=== PATIENT | male | born 1965 | race Caucasian/White ===

== ENCOUNTER 2023-08-29 17:49 | Inpatient (IN) | payer BC, OTHER ==
[~2023-08-29] VITALS: Ht 182.9 cm; Wt 94.8 kg
[2023-08-29] MEDS: KETOROLAC TROMETH 60MG/2ML VIAL IM ONE (19:44)
[2023-08-29 19:45] LABS: Basophils # (auto) 0 10 ^3/uL (0-0.2); Basophils % (auto) 0.2 % (0.0-2.0); Eosinophils # (auto) 0 10 ^3/uL (0-0.8); Hematocrit 41.9 % (41.0-53.0); Hemoglobin 13.9 g/dL (13.5-17.5); Lymphocytes # (auto) 0.6 10 ^3/uL (0.4-5.4); Lymphocytes % (auto) 5.6 % (10.0-50.0); Mean Corpuscular Hemoglobin 28.7 pg (28.0-32.0); Mean Corpuscular Hgb Conc. 33.2 g/dL (32.0-36.0); Mean Corpuscular Volume 86.5 fL (80.0-100.0); Monocytes # (auto) 0.2 10 ^3/uL (0-1.3); Monocytes % (auto) 1.7 % (0.0-12.0); Neutrophils # (auto) 10.1 10 ^3/uL (1.6-8.6); Neutrophils % (auto) 92.5 % (37.0-80.0); Nucleated Red Blood Cells % 0.1 %; Red Blood Cells 4.84 10^6/uL (4.5-5.90); Red Cell Distribution Width 14.6 % (11.8-14.3); White Blood Cell 10.9 10^3/uL (4.4-10.8)
[2023-08-29 20:04] LABS: Alanine Aminotransferase 12 U/L (7-40); Albumin 4.8 g/dL (3.2-4.8); Alkaline Phosphatase 83 U/L (46-116); Anion Gap 6 (5-15); Aspartate Aminotransferase < 8 U/L (13-40); BUN/Creatinine Ratio 10.5 (10.0-20.0); Bilirubin, Total 0.9 mg/dL (0.2-1.0); Blood Urea Nitrogen 9 mg/dL (9-23); Calcium 9.2 mg/dL (8.7-10.4); Carbon Dioxide 26 mmol/L (20-30); Chloride 104 mmol/L (98-107); Glucose 137 mg/dL (74-106); Lipase 28 U/L (12-53); Potassium 3.8 mmol/L (3.5-5.1); Sodium 136 mmol/L (136-145); Total Protein 7.9 g/dL (5.7-8.2)
[2023-08-29 20:14] LABS: Urine Blood Negative /uL (Negative); Urine Clarity Clear (Clear); Urine Color Yellow (Yellow); Urine Protein, UAD 1+ (Negative); Urine Specific Gravity 1.027 (1.001-1.035); Urine Urobilinogen Normal (Negative)
[2023-08-29] MEDS ORDERED: DOCUSATE SOD 100 MG CAP PO PRN (22:00)
[2023-08-29] MEDS ORDERED: ONDANSETRON HCL 4 MG/2 ML VIAL IV PRN (22:00)
[2023-08-29] MEDS ORDERED: NITROGLYCERIN 0.4 MG SL TAB SL PRN (22:15)
[2023-08-29] MEDS ORDERED: MORPHINE SULFATE INJ 2 MG/ml SYRG IV PRN (22:15)
[2023-08-29] MEDS: SODIUM CHLORIDE 0.9% 1,000 ML IV ONE (22:45)
[2023-08-30] MEDS: MORPHINE SULFATE INJ 2 MG/ml SYRG IV PRN ×2 (00:09→21:30)
[2023-08-30] MEDS: metroNIDAZOLE 500MG/100ML 100 ML IV SCH (00:23)
[2023-08-30 01:19] VITALS: BP 108/67; PULSE 102; RESP 20; TEMP 98.7; O2SAT 95
[2023-08-30] MEDS ORDERED: ASPI325T4 PO (04:35)
[2023-08-30] MEDS ORDERED: ACET-1881 PO (04:35)
[2023-08-30] MEDS: HYDROcodone-ACET 5/325MG TAB PO PRN (05:37)
[2023-08-30 06:26] LABS: Basophils # (auto) 0 10 ^3/uL (0-0.2); Basophils % (auto) 0.2 % (0.0-2.0); Eosinophils # (auto) 0 10 ^3/uL (0-0.8); Eosinophils % (auto) 0.1 % (0.0-7.0); Hematocrit 34.7 % (41.0-53.0); Hemoglobin 11.6 g/dL (13.5-17.5); Lymphocytes # (auto) 0.8 10 ^3/uL (0.4-5.4); Lymphocytes % (auto) 9.1 % (10.0-50.0); Mean Corpuscular Hgb Conc. 33.6 g/dL (32.0-36.0); Mean Corpuscular Volume 86.3 fL (80.0-100.0); Monocytes # (auto) 0.5 10 ^3/uL (0-1.3); Monocytes % (auto) 5.8 % (0.0-12.0); Neutrophils # (auto) 7.9 10 ^3/uL (1.6-8.6); Neutrophils % (auto) 84.8 % (37.0-80.0); Red Blood Cells 4.02 10^6/uL (4.5-5.90); Red Cell Distribution Width 14.5 % (11.8-14.3); White Blood Cell 9.3 10^3/uL (4.4-10.8)
[2023-08-30 06:35] LABS: Alkaline Phosphatase 66 U/L (46-116); Anion Gap 7 (5-15); Aspartate Aminotransferase < 8 U/L (13-40); BUN/Creatinine Ratio 13.6 (10.0-20.0); Blood Urea Nitrogen 14 mg/dL (9-23); Calcium 8.4 mg/dL (8.7-10.4); Carbon Dioxide 25 mmol/L (20-30); Chloride 106 mmol/L (98-107); Glucose 123 mg/dL (74-106); Potassium 4.1 mmol/L (3.5-5.1); Sodium 138 mmol/L (136-145); Total Protein 6.5 g/dL (5.7-8.2)
[2023-08-30 06:37] LABS: Alanine Aminotransferase 9 U/L (7-40)
[2023-08-30] MEDS: metroNIDAZOLE 500MG/100ML 100 ML IV ONE (08:52)
[2023-08-30] MEDS: ONDANSETRON HCL 4 MG/2 ML VIAL IV ONE (08:53)
[2023-08-30] MEDS: SODIUM CHLORIDE 0.9% 1,000 ML IV SCH (08:53)
[2023-08-30] MEDS: levoFLOXacin 500MG 100 ML IV ONE (08:53)
[2023-08-30] MEDS: MORPHINE SULFATE 4 MG/ML SYR/VIAL IV ONE (08:53)
[2023-08-30 09:00] VITALS: BP 133/79; PULSE 93; RESP 16; TEMP 98.7; O2SAT 94
[2023-08-30] MEDS: levoFLOXacin 500MG 100 ML IV SCH (09:09)
[2023-08-30 13:00] VITALS: BP 132/69; PULSE 103; RESP 18; TEMP 98.6; O2SAT 92
[2023-08-30] MEDS: SUCCINYLCHOLINE CHLORIDE 20 MG/ML 10ML VIAL IV ONE (13:37)
[2023-08-30] MEDS ORDERED: MIDAZOLAM HCL 2MG/2ML 2ml VIAL (1mg/ml) ONE (13:38)
[2023-08-30] MEDS ORDERED: fentaNYL CITRATE 100 MCG/2 ML VL ONE ×2 (13:38→14:56)
[2023-08-30] MEDS ORDERED: PROPOFOL 10 MG/ML 20 ML IV ONE (13:43)
[2023-08-30] MEDS ORDERED: DexAMETHasone SOD PHOS 10MG/1ML VIAL INJ ONE (14:11)
[2023-08-30] MEDS: ACETAMINOPHEN IV 100 ML IV ONE (14:55)
[2023-08-30] MEDS ORDERED: ONDANSETRON HCL 4 MG/2 ML VIAL ONE (15:02)
[2023-08-30] MEDS ORDERED: NEOSTIGMINE 1 MG/ML INJ (10mg/10ML VIAL) ONE (15:27)
[2023-08-30] MEDS ORDERED: GLYCOPYRROLATE 0.2 MG/ML 1ML VIAL ONE (15:28)
[2023-08-30] MEDS ORDERED: ONDANSETRON HCL 4 MG/2 ML VIAL IV PRN (15:30)
[2023-08-30] MEDS ORDERED: HYDROmorphone HCL 2 MG/ML VL/or syr IV PRN ×2 (15:30)
[2023-08-30 16:59] VITALS: BP 134/74; PULSE 93; RESP 16; TEMP 98.8; O2SAT 93
[2023-08-30 22:00] VITALS: BP 120/87; PULSE 95; RESP 14; TEMP 98.3; O2SAT 92
[2023-08-30 22:56] VITALS: O2SAT 95
[2023-08-31 05:00] VITALS: BP 119/75; PULSE 87; RESP 17; TEMP 98.1; O2SAT 94
[2023-08-31 08:50] VITALS: BP 131/80; PULSE 92; RESP 20; TEMP 98.2; O2SAT 90
[2023-08-31] MEDS: ACETAMINOPHEN 325 MG TAB PO PRN (09:42)
[2023-08-31 13:27] VITALS: BP 140/89; PULSE 102; RESP 20; TEMP 98; O2SAT 90
[2023-08-31] MEDS ORDERED: HYDROmorphone HCL 2 MG/ML VL/or syr IV PRN (13:30)
[2023-08-31] MEDS: HYDROcodone-ACET 5/325MG TAB PO PRN (14:20)
[2023-08-31 17:03] VITALS: BP 124/82; PULSE 95; RESP 20; TEMP 98.1; O2SAT 93
[2023-08-31 20:00] VITALS: BP 135/90; PULSE 94; RESP 18; TEMP 97.8; O2SAT 95
[2023-08-31 22:00] VITALS: BP 135/90; PULSE 94; RESP 18; TEMP 97.8; O2SAT 95
[2023-09-01] VITALS (7 sets, daily range): BP systolic 118–157; BP diastolic 76–93; PULSE 88–104; RESP 15–20; TEMP 97.6–98.9; O2SAT 90–98
[2023-09-01 05:27] LABS: Basophils # (auto) 0 10 ^3/uL (0-0.2); Basophils % (auto) 0.3 % (0.0-2.0); Eosinophils # (auto) 0.1 10 ^3/uL (0-0.8); Eosinophils % (auto) 0.6 % (0.0-7.0); Hematocrit 34.4 % (41.0-53.0); Hemoglobin 11.6 g/dL (13.5-17.5); Lymphocytes % (auto) 9.9 % (10.0-50.0); Mean Corpuscular Hgb Conc. 33.7 g/dL (32.0-36.0); Mean Corpuscular Volume 85.9 fL (80.0-100.0); Monocytes # (auto) 0.4 10 ^3/uL (0-1.3); Neutrophils # (auto) 8.8 10 ^3/uL (1.6-8.6); Neutrophils % (auto) 85.2 % (37.0-80.0); Nucleated Red Blood Cells % 0.1 %; Red Cell Distribution Width 14.2 % (11.8-14.3); White Blood Cell 10.3 10^3/uL (4.4-10.8)
[2023-09-01 05:45] LABS: Alkaline Phosphatase 76 U/L (46-116); Anion Gap 7 (5-15); BUN/Creatinine Ratio 18.8 (10.0-20.0); Blood Urea Nitrogen 16 mg/dL (9-23); Calcium 9.3 mg/dL (8.7-10.4); Carbon Dioxide 25 mmol/L (20-30); Chloride 107 mmol/L (98-107); Glucose 93 mg/dL (74-106); Potassium 3.7 mmol/L (3.5-5.1); Sodium 139 mmol/L (136-145)
[2023-09-01 05:46] LABS: Albumin 4.1 g/dL (3.2-4.8); Aspartate Aminotransferase < 8 U/L (13-40); Bilirubin, Total 0.5 mg/dL (0.2-1.0)
[2023-09-01 05:59] LABS: Alanine Aminotransferase < 9 U/L (7-40)
[2023-09-01 08:34] LABS: Hepatitis B Surface Antigen Negative (Negative)
[2023-09-01 08:55] LABS: Hepatitis C Antibody Negative (Negative)
[2023-09-02] VITALS (7 sets, daily range): BP systolic 126–141; BP diastolic 77–92; PULSE 84–99; RESP 17–19; TEMP 97.9–98.6; O2SAT 92–98
[2023-09-02 06:36] LABS: Basophils # (auto) 0 10 ^3/uL (0-0.2); Basophils % (auto) 0.4 % (0.0-2.0); Eosinophils # (auto) 0.1 10 ^3/uL (0-0.8); Eosinophils % (auto) 1.7 % (0.0-7.0); Hematocrit 34.3 % (41.0-53.0); Hemoglobin 11.2 g/dL (13.5-17.5); Lymphocytes # (auto) 0.9 10 ^3/uL (0.4-5.4); Mean Corpuscular Hemoglobin 28.3 pg (28.0-32.0); Mean Corpuscular Hgb Conc. 32.7 g/dL (32.0-36.0); Mean Corpuscular Volume 86.4 fL (80.0-100.0); Monocytes # (auto) 0.8 10 ^3/uL (0-1.3); Monocytes % (auto) 9.8 % (0.0-12.0); Neutrophils # (auto) 6.5 10 ^3/uL (1.6-8.6); Neutrophils % (auto) 77.1 % (37.0-80.0); Red Blood Cells 3.97 10^6/uL (4.5-5.90); Red Cell Distribution Width 14.3 % (11.8-14.3); White Blood Cell 8.4 10^3/uL (4.4-10.8)
[2023-09-02 06:46] LABS: Anion Gap 8 (5-15); Carbon Dioxide 24 mmol/L (20-30); Chloride 105 mmol/L (98-107); Potassium 3.4 mmol/L (3.5-5.1); Sodium 137 mmol/L (136-145)
[2023-09-02 06:47] LABS: Calcium 9.1 mg/dL (8.7-10.4)
[2023-09-02 06:52] LABS: BUN/Creatinine Ratio 14.9 (10.0-20.0); Blood Urea Nitrogen 11 mg/dL (9-23); Glucose 85 mg/dL (74-106); Magnesium 1.8 mg/dL (1.6-2.6)
[2023-09-02] MEDS: POTASSIUM EFFERVESENT TAB 25 MEQ PO ONE (12:17)
[2023-09-02] MEDS: MAGNESIUM OXIDE 400 MG TAB PO SCH (21:28)
[2023-09-03 05:25] VITALS: BP 141/87; PULSE 90; RESP 19; TEMP 98.3; O2SAT 92
[2023-09-03 06:30] LABS: Anion Gap 9 (5-15); Carbon Dioxide 26 mmol/L (20-30); Chloride 105 mmol/L (98-107); Potassium 3.8 mmol/L (3.5-5.1); Sodium 140 mmol/L (136-145)
[2023-09-03 06:32] LABS: Calcium 8.9 mg/dL (8.7-10.4)
[2023-09-03 06:36] LABS: Glucose 97 mg/dL (74-106)
[2023-09-03 06:37] LABS: BUN/Creatinine Ratio 10.8 (10.0-20.0); Blood Urea Nitrogen 8 mg/dL (9-23); Magnesium 1.9 mg/dL (1.6-2.6)
[2023-09-03 08:00] VITALS: PULSE 90; RESP 18
[2023-09-03 09:00] VITALS: BP 129/78; PULSE 72; RESP 18; TEMP 98.3; O2SAT 93
[2023-09-03] MEDS ORDERED: CIPR-173 PO (11:24)
[2023-09-03] MEDS ORDERED: METR-344 PO (11:24)
[2023-09-03 13:00] VITALS: BP 126/84; PULSE 97; RESP 18; TEMP 98.7; O2SAT 95
== END 2023-09-03 17:04 | disposition home or self-care (01) | DRG 397 ==
LOC: ER 17:49 → OVERFLOW 22:03 → WEST WING 23:03
PROVIDERS: ADMIT Nurse Practitioner Family; ATTEND Internal Medicine Geriatric Medicine
PROC: 0W9G40Z Drainage of Peritoneal Cavity with Drainage Device, Percutaneous Endoscopic Approach (ICD-10-PCS; 2023-08-30)
PROC: 0FT44ZZ Resection of Gallbladder, Percutaneous Endoscopic Approach (ICD-10-PCS; 2023-08-30)
PROC: 0DTJ4ZZ Resection of Appendix, Percutaneous Endoscopic Approach (ICD-10-PCS; principal; 2023-08-30 13:49)
DX: K35.33 Acute appendicitis with perforation, localized peritonitis, and gangrene, with abscess (principal); J86.9 Pyothorax without fistula; K81.0 Acute cholecystitis; D64.9 Anemia, unspecified; K66.0 Peritoneal adhesions (postprocedural) (postinfection); Z96.651 Presence of right artificial knee joint; E87.6 Hypokalemia; Z87.442 Personal history of urinary calculi; Z88.0 Allergy status to penicillin
CPT/HCPCS: 36415; 74176; 80048; 80053; 81003; 83690; 83735; 85025; 86803; 87340; 93005; G0378; J0131; J0330; J1100; J1885; J1956; J2250; J2405; J2704; J3490

== ENCOUNTER 2024-12-10 09:50 | Day surgery (SDC) | payer OTHER, BC ==
[2024-12-08 14:39] LABS: Basophils # (auto) 0.1 10 ^3/uL (0-0.2); Basophils % (auto) 0.9 % (0.0-2.0); Eosinophils # (auto) 0.2 10 ^3/uL (0-0.8); Eosinophils % (auto) 2.5 % (0.0-7.0); Lymphocytes # (auto) 2.5 10 ^3/uL (0.4-5.4); Lymphocytes % (auto) 32.6 % (10.0-50.0); Mean Corpuscular Hgb Conc. 34.1 g/dL (32.0-36.0); Mean Corpuscular Volume 85.1 fL (80.0-100.0); Monocytes # (auto) 0.6 10 ^3/uL (0-1.3); Monocytes % (auto) 7.2 % (0.0-12.0); Neutrophils # (auto) 4.4 10 ^3/uL (1.6-8.6); Neutrophils % (auto) 56.8 % (37.0-80.0); Nucleated Red Blood Cells % 0.1 %; Platelet Count (auto) 239 10^3/uL (140-450); Red Blood Cells 4.82 10^6/uL (4.5-5.90); Red Cell Distribution Width 13.7 % (11.8-14.3); White Blood Cell 7.8 10^3/uL (4.4-10.8)
[2024-12-08 15:00] LABS: INR 1.03 (0.9-1.15); Partial Thromboplastin Time 27.6 SEC (24.5-34.5); Prothrombin Time 10.9 sec (9.3-11.8)
[2024-12-08 15:06] LABS: Alanine Aminotransferase 19 U/L (7-40); Albumin 4.4 g/dL (3.2-4.8); Alkaline Phosphatase 70 U/L (46-116); Anion Gap 8 (5-15); Aspartate Aminotransferase 19 U/L (<34); BUN/Creatinine Ratio 15.4 (10.0-20.0); Bilirubin, Total 0.3 mg/dL (0.2-1.0); Blood Urea Nitrogen 16 mg/dL (9-23); Calcium 8.9 mg/dL (8.7-10.4); Carbon Dioxide 29 mmol/L (20-31); Chloride 106 mmol/L (98-107); Glucose 82 mg/dL (74-106); Potassium 4.2 mmol/L (3.5-5.1); Sodium 143 mmol/L (136-145); Total Protein 6.8 g/dL (5.7-8.2)
[~2024-12-10] VITALS: Ht 182.9 cm; Wt 94.3 kg
[~2024-12-10 09:50] MED LIST: MELO15TA29 PO
[2024-12-10 12:20] VITALS: PULSE 78; RESP 11; O2SAT 94
[2024-12-10] MEDS ORDERED: SODIUM CHLORIDE LOCK 10 ML ONE (12:23)
[2024-12-10] MEDS: diphenhdrAMINE HCL 50 MG/1 ML VL ONE (12:31)
[2024-12-10] MEDS: MIDAZOLAM HCL 5 MG/ML-1ML VIAL ONE (12:31)
[2024-12-10] MEDS: fentaNYL CITRATE 100 MCG/2 ML VL ONE (12:31)
--- NOTE | 2024-12-10 12:55 | DVHOP2 ---
Operative Report DATE OF OPERATION: 12/10/24 PROCEDURE: Colonoscopy with cold biopsy. PREOPERATIVE INDICATION: The patient is a 59 -year-old male undergoing colonoscopy for colon cancer screening POSTOPERATIVE DIAGNOSES: 1. Mild sigmoid diverticular disease with sigmoid muscular hypertrophy 2. There was a 1-2 mm benign-appearing rectal polyp that was seen and removed by cold biopsy forceps 3. Trace internal hemorrhoids otherwise completely normal colonoscopy examination up to the cecum and terminal ileum PROCEDURE PERFORMED BY: Samuel Rebolledo M.D. SCOPE: Olympus videocolonoscope. ASA CLASS: 2. PREOPERATIVE MEDICATIONS: Versed 5 mg, Fentanyl 100 mcg, Benadryl 50 mg PROCEDURE IN DETAIL: After obtaining an informed consent, the patient was placed on left lateral decubitus position. He was then sedated with the above medications. A rectal examination was performed that was normal. The colonoscope was then passed through the anus into the rectosigmoid and through the descending, transverse, and ascending colon up to the cecum with visualization of the appendiceal orifice, base of the cecum and the ileocecal valve. The colonoscope was then withdrawn. Distal 5 cm of the terminal ileum were normal No masses or colitis were seen. Patient had mild to moderate sigmoid diverticular disease There was sigmoid muscular hypertrophy. In the rectum there was a 1-2 mm benign-appearing polyp This was removed by cold biopsy forceps. On retroflexion the patient had trace internal hemorrhoids The patient tolerated the procedure well without difficulty. WITHDRAWAL TIME: 8 minutes QUALITY OF THE PREP: Milton Bowel Prep score: 9. COMPLICATIONS : None SPECIMENS: Rectal polyp DISPOSITION: Stable D/C to home PLAN: 1. Repeat colonoscopy base on biopsy result likely in 5-7 years 2. Resume GI soft diet advance as tolerated 3. Increase fluid and fiber intake 4. Outpatient follow up with me in 4-6 weeks to review results and discuss further management SAMUEL REBOLLEDO MD Dec 10, 2024 12:55
[2024-12-10 13:30] VITALS: BP 123/72; PULSE 78; RESP 17; O2SAT 99
== END 2024-12-10 13:30 | disposition home or self-care (01) ==
LOC: GI 09:50
PROVIDERS: ATTEND Internal Medicine Gastroenterology
DX: Z12.11 Encounter for screening for malignant neoplasm of colon (principal); K57.30 Diverticulosis of large intestine without perforation or abscess without bleeding; K64.8 Other hemorrhoids; K62.1 Rectal polyp; K63.89 Other specified diseases of intestine; Z88.0 Allergy status to penicillin; Z98.890 Other specified postprocedural states; F17.200 Nicotine dependence, unspecified, uncomplicated
CPT/HCPCS: 36415; 45380; 80053; 85025; 85610; 85730; 88305; J1200; J2250; J3010; J7030

== ENCOUNTER 2025-02-23 13:08 | Emergency (ER) | payer OTHER, BC ==
[~2025-02-23] VITALS: Ht 182.9 cm; Wt 98.5 kg
[2025-02-23 13:13] VITALS: BP 146/86; PULSE 79; RESP 20; TEMP 97.9; O2SAT 96
[2025-02-23] MEDS: FLUORESCEIN SOD OPTH TEST STRIP LEFTEYE ONE (15:30)
[2025-02-23] MEDS ORDERED: IBUP-1455 PO (15:43)
[2025-02-23] MEDS ORDERED: GENT0.3S10 LEFTEYE (15:43)
[2025-02-23] MEDS ORDERED: HYDR-4902 PO (15:43)
--- NOTE | 2025-02-23 15:44 | ED.PDOC ---
Eye-HPI HPI Comments 59-year-old male with no significant past medical history brought in by family complaining of a possible metal shard in his left eye. Patient states he was using a hand-held drill when he felt a piece of metal fall behind his safety glasses into his left eye. He now reports severe pain in the eye, redness, tearing. He denies decreased vision. Chief Complaint: Eye Problem Time Seen by MD: 14:32 Primary Care Provider: AVEL Murphy Notes: Medications, Allergies Allergies: Coded Allergies: Penicillins (Verified Allergy, Unknown, 08/29/23) Home Meds Active Scripts Hydrocodone-Acetaminophen (Hydrocodone Bitartrate/AC 5-325 mg) 1 Tab Tab, 1 TAB PO Q6HP PRN, #10 TAB Prov:RAMIRO WILL MD 02/23/25 Ibuprofen Micronized (Ibuprofen) 800 Mg Tab, 800 MG PO Q8HP PRN, #30 TAB prn pain, take with food Prov:RAMIRO WILL MD 02/23/25 Gentamicin Sulfate (Gentamicin Sulfate) 0.3 % Thuy, 2 DROP LEFTEYE QID, #5 ML Prov:RAMIRO WILL MD 02/23/25 Reported Medications Meloxicam (Meloxicam) 15 Mg Tab, 15 MG PO DAILY, TAB 12/08/24 Information Source: Patient, Spouse Mode of Arrival: Ambulatory Past Medical History PAST MEDICAL HISTORY: Denies Surgical History (Other): Noncontributory Family History Family History: Reviewed,noncontributory to illness Social History Smoker: Non-Smoker Alcohol: Denies ETOH Use Drugs: Denies Drug Use Lives In: Home All Other Systems: Reviewed and Negative (Comprehensive systems review obtained and negative except for what is stated in the HPI.) Physical Exam General Appearance: Mild Distress HEENT: PERRL/EOMI, Other (Left conjunctival injection. Fluorescein exam: No visualized foreign body, David sign, or areas of increased fluorescein uptake.) Neck: Full Range of Motion, Normal Inspection Respiratory: No Accessory Muscle Use, No Respiratory Distress Cardiovascular: Regular Rate/Rhythm Breast Exam: Deferred Gastrointestinal: Non Tender, Soft Genitalia: Deferred Pelvic: Deferred Rectal: Deferred Extremities: Normal inspection, Normal range of motion, Non-tender, No pedal edema Neurologic: Alert (Oriented x4), Normal Affect, Normal Mood, Other (Ambulatory) Cerebellar Function: NOT DONE Reflexes: NOT DONE Skin: Dry, Normal Color, Warm Lymphatic: NOT DONE Was a procedure done? Was a procedure done?: No EENT DIFF Eye: Conjunctivitis, Allergic, Bacterial, Viral, Corneal Abrasion, Corneal Lacerations, Corneal Ulceration, Foreign Body-Conjunctiva, Foreign Body-Corneal, Foreign Body-Intraocular, Foreign Body-Lid X-Ray, Labs, Meds, VS Vital Signs Date Time Temp Pulse Resp B/P (MAP) Pulse Ox O2 Delivery O2 Flow Rate FiO2 02/23/25 13:13 97.9 79 20 146/86 96 97.9 Current Medications Medications (Trade) Dose Ordered Sig/Adrian Route Start Time Stop Time Status Last Admin Acetaminophen/ Hydrocodone Bitart ([place] 5/325MG Tab) 1 tab ONCE ONCE PO 02/23/25 15:15 02/23/25 15:16 DC 02/23/25 16:02 Diphtheria/ Tetanus/Acell Pertussis (Boostrix T-Dap) 0.5 ml ONCE ONCE IM 02/23/25 15:15 02/23/25 15:16 DC 02/23/25 16:02 X-Ray, Labs, Meds, VS Comment 59-year-old male with no significant past medical history complaining of a left eye foreign body sensation occurring after using a hand drill, then experiencing the sensation of a foreign body landing inside his left eye Vitals remarkable for BP 146/86 Exam remarkable for left eye conjunctival injection and tearing Rhythm strip independently interpreted by me: Sinus rhythm, rate 79, no ectopy. Patient treated with the following in the ED: [place] 5/325 mg p.o., tetracaine 2 drops left eye On fluorescein Wood's lamp exam, there was no visualized foreign body, visualized abrasion, David sign or any area of fluorescein uptake. On re-evaluation, patient stated pain had improved. Vitals were stable. He denied any visual acuity change. Patient appears stable for discharge with close outpatient follow-up with an special library librarian. He was referred to [facility]. Rx gentamicin ophthalmic, ibuprofen Time of 1ST Reevaluation: 15:39 Reevaluation 1ST: Improved Patient Education/Counseling: Diagnosis, Treatment, Need For Follow Up Family Education/Counseling: Diagnosis, Treatment, Need For Follow Up SEPSIS Sepsis Screen Date sepsis recognized/suspect: Feb 23, 2025 Time Sepsis recognized/suspect: 5 Recent Procedure: No On Antibiotic Therapy: No Respiratory Rate >20: No Heart Rate >90: No Temp<36 C (96.8 F) or >38.3 C: No SBP <90 or MAP <65 mmHG: No New Acute Mental Status Change: No Is the patient on CPAP, BIPAP,: No Vital Signs Date Time Temp Pulse Resp B/P (MAP) Pulse Ox O2 Delivery O2 Flow Rate FiO2 02/23/25 13:13 97.9 79 20 146/86 96 97.9 Medications Medications Dose Ordered Sig/Adrian Route Start Time Stop Time Status Last Admin Dose Admin Acetaminophen/ Hydrocodone Bitart 1 tab ONCE ONCE PO 02/23/25 15:15 02/23/25 15:16 DC 02/23/25 16:02 Diphtheria/ Tetanus/Acell Pertussis 0.5 ml ONCE ONCE IM 02/23/25 15:15 02/23/25 15:16 DC 02/23/25 16:02 Departure 1 Departure Time of Disposition: 15:39 Impression: Primary Impression: Conjunctivitis Qualified Codes: H10.9 - Unspecified conjunctivitis Additional Impression: Conjunctival abrasion Qualified Codes: S05.02XA - Injury of conjunctiva and corneal abrasion without foreign body, left eye, initial encounter Disposition: HOME / SELF CARE / HOMELESS Condition: Stable Additional Instructions: I have prescribed medication for pain and antibiotic drops to prevent infection. You may have an abrasion on the surface of your eye that is causing pain. Follow-up with an special library librarian in 1-2 days for further evaluation. [facility] to be evaluated by an special library librarian for worsening pain, redness, vision changes, fever, or any other concern. e-Prescriptions Hydrocodone-Acetaminophen (Hydrocodone Bitartrate/AC 5-325 mg) 1 Tab Tab 1 TAB PO Q6HP PRN, #10 TAB Prov: RAMIRO WILL MD 02/23/25 Ibuprofen Micronized (Ibuprofen) 800 Mg Tab 800 MG PO Q8HP PRN, #30 TAB prn pain, take with food Prov: RAMIRO WILL MD 02/23/25 Gentamicin Sulfate (Gentamicin Sulfate) 0.3 % Thuy 2 DROP LEFTEYE QID, #5 ML Prov: RAMIRO WILL MD 02/23/25 Discharged With: Spouse Critical Care Note Critical Care Time?: No Stability Stability form required: No Heart Score Heart Score: Heart Score Response (Comments) Value History N/A 0 EKG N/A 0 Age N/A 0 Risk Factors N/A 0 Troponin N/A 0 Total 0 I personally scribed for RAMIRO WILL MD ([email or web address]) on 02/23/25 at 15:56. Electronically submitted by Bel Little ([facility]). RAMIRO WILL MD Feb 23, 2025 15:44
[2025-02-23] MEDS: TETANUS-DIPTH-ACEL PERTUSSIS 0.5ML SYR Tdap IM ONE (16:02)
[2025-02-23] MEDS: HYDROcodone-ACET 5/325MG TAB PO ONE (16:02)
== END 2025-02-23 16:06 | disposition home or self-care (01) ==
LOC: ER 13:08
DX: S05.02XA Injury of conjunctiva and corneal abrasion without foreign body, left eye, initial encounter (principal); H10.9 Unspecified conjunctivitis; Z88.0 Allergy status to penicillin; X58.XXXA Exposure to other specified factors, initial encounter; Y93.89 Activity, other specified; Y92.89 Other specified places as the place of occurrence of the external cause; Y99.8 Other external cause status
CPT/HCPCS: 90471; 90715